=== PATIENT | male | born 1985 | race Caucasian/White ===

== ENCOUNTER → 2017-01-28 | Outpatient (CLI) | payer MEDICAID ==
--- NOTE | 2017-01-28 21:04 | CONS ---
DATE OF CONSULTATION: REASON FOR CONSULTATION: Sleep apnea. 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 He snores loudly. His tells me that he stops breathing and he occasionally wakes up gasping for air. Occasionally grinds his teeth. He goes to bed around 10:00 a.m. Wakes 4 p.m. 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 No symptoms of narcolepsy. No sleep hallucinations or cataplexy. No recent weight gain. However anatomically he has got significant crowding of posterior pharynx with Mallampati class IV. His [place] score is 6. No major comorbidities other than I noted that his blood pressure is high and I asked him to establish himself with a primary care physician for better blood pressure control. PAST MEDICAL HISTORY: Negative. PAST SURGICAL HISTORY: Negative. Allergies not known. Medications are none. SOCIAL HISTORY: Ex-smoker, quit 10 years ago. No history of alcohol. No history of IV drugs. FAMILY HISTORY: Noncontributory. REVIEW OF SYSTEMS: Twelve-point review of systems was done and positive findings all mentioned above in the history of present illness. No nocturnal heartburn. No sleepwalking or sleeptalking. No anxiety or panic attacks. No palpitations. No claustrophobia, no depression. BP is 170/114, pulse 80, respirations 16, temperature 98.2, saturation is 98% on room air. Neck size 16 inches. Height is 5 feet 8 inches. Weight is 199. GENERAL APPEARANCE: Calm, comfortable. HEENT: Short neck, crowding posterior pharynx. There is no goiter or neck masses. Mallampati class IV. LUNGS: Clear to auscultation. HEART: Sounds are regular rate and rhythm. Normal S1, S2. ABDOMEN: Soft, nontender. EXTREMITIES: No clubbing. No cyanosis or clubbing. IMPRESSION: 1. Obstructive sleep apnea suspected clinically under investigation. 2. Mallampati Class IV. 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 4. Hypertension. PLAN: 1. Recommend tighter blood pressure control and the patient needs to establish himself with primary care physician. 2. Weight loss. 3. Implement good sleep hygiene measures. 4. Polysomnogram to look for any significant obstructive sleep apnea and treat accordingly. 5. Will continue to follow and make further recommendations based on his progress.
== END ==
LOC: SLEEP 14:48
PROVIDERS: ATTEND Internal Medicine Critical Care Medicine
DX: G47.33 Obstructive sleep apnea (adult) (pediatric) (principal); I10 Essential (primary) hypertension; Z87.891 Personal history of nicotine dependence
CPT/HCPCS: 99211

== ENCOUNTER → 2022-01-10 | Outpatient (CLI) | payer MEDICAID ==
[2022-01-10 19:57] LABS: Basophils # (A) 0.06 X 10*3/uL (0.00-0.10); Basophils % (A) 0.7 %; Eosinophils # (A) 0.12 X 10*3/uL (0.04-0.35); Eosinophils % (A) 1.5 %; HCT 50.2 % (39.6-50.0); HGB 16.3 g/dL (13.0-17.0); Immature Grans, Automated 0.4 %; Lymphocytes # (A) 2.01 X 10*3/uL (0.90-5.00); Lymphocytes % (A) 24.3 %; MCH 28.7 pg (27.0-32.0); MCHC 32.5 g/dL (32.0-37.0); MCV 88.4 fL (80.0-97.0); Mean Platelet Volume 12.1 fL (9.5-12.2); Monocytes # (A) 0.43 X 10*3/uL (0.20-1.00); Monocytes % (A) 5.2 %; NRBC Per 100 WBC 0 /100 WBCS (0.0-0.0); Neutrophils # (A) 5.62 X 10*3/uL (1.80-7.70); Neutrophils % (A) 67.9 %; Platelet Count 209 X 10*3/uL (140-440); RBC 5.68 X 10*6/uL (4.40-5.60); RDW 12.5 % (11.5-14.5); WBC 8.27 X 10*3/uL (4.50-10.00)
[2022-01-10 20:03] LABS: African American GFR (CKD) 105.1 (60.0-200.0); Albumin 4.6 g/dL (3.8-4.9); Albumin/Globulin Ratio 1.7 (1.60-3.17); BUN/Creat Ratio 12.69 Ratio (12.00-20.00); Blood Urea Nitrogen 13.2 mg/dL (9.0-27.0); Calcium 9.5 mg/dL (8.7-10.3); Carbon Dioxide 22.6 mmol/L (20.0-27.5); Globulin 2.7 g/dL (1.6-3.3); HDL Cholesterol 43.6 mg/dL (40.00-60.00); Non-African American GFR(CKD) 90.7 (60.0-200.0); Potassium 3.9 mmol/L (3.5-5.5); Total Bilirubin 0.4 mg/dL (0.30-1.20); Total Protein 7.3 g/dL (6.2-8.2)
[2022-01-10 20:16] LABS: Chol/HDL Ratio 5.69 Ratio
[2022-01-10 20:56] LABS: Mumps Virus IgG Ab Interp POSITIVE (NEGATIVE); Mumps Virus IgG Antibody 1.9 AI
== END | disposition home or self-care (01) ==
LOC: LABWHC1 13:46
PROVIDERS: ATTEND Internal Medicine Geriatric Medicine
DX: Z00.00 Encounter for general adult medical examination without abnormal findings (principal); Z13.220 Encounter for screening for lipoid disorders
CPT/HCPCS: 36415; 80053; 80061; 83721; 84443; 85025; 86735; 86762; 86765

== ENCOUNTER → 2024-07-13 | Outpatient (CLI) | payer MEDICAID ==
[2024-07-13 14:59] LABS: Basophils # (A) 0.04 X 10*3/uL (0.00-0.10); Basophils % (A) 0.6 %; Eosinophils # (A) 0.14 X 10*3/uL (0.04-0.35); HCT 50.9 % (39.6-50.0); HGB 16.7 g/dL (13.0-17.0); Lymphocytes # (A) 2.48 X 10*3/uL (0.90-5.00); Lymphocytes % (A) 35.3 %; MCH 29.6 pg (27.0-32.0); MCHC 32.8 g/dL (32.0-37.0); MCV 90.1 FL (80.0-97.0); Mean Platelet Volume 12.1 FL (9.5-12.2); Monocytes # (A) 0.63 X 10*3/uL (0.20-1.00); NRBC Per 100 WBC 0 X 10*3/uL (0.00-0.01); Neutrophils # (A) 3.71 X 10*3/uL (1.80-7.70); Neutrophils % (A) 52.8 %; Platelet Count 203 X 10*3/uL (140-440); RBC 5.65 X 10*6/uL (4.40-5.60); RDW 12.4 % (11.5-14.5); WBC 7.02 X 10*3/uL (4.50-10.00)
[2024-07-13 15:31] LABS: ALT 38 U/L (10-49); AST 66 U/L (14-35); Albumin 4.7 g/dL (3.8-4.9); Albumin/Globulin Ratio 1.88 Ratio (1.60-3.17); Alkaline Phosphatase 90 U/L (41-126); BUN/Creat Ratio 12.67 Ratio (12.00-20.00); Blood Urea Nitrogen 11.4 mg/dL (9.0-27.0); Calcium 9.9 mg/dL (8.7-10.3); Carbon Dioxide 23.9 mmol/L (21.6-31.8); Chloride 105 mmol/L (96-109); Chol/HDL Ratio 5.72 Ratio; Globulin 2.5 g/dL (1.6-3.3); Glucose 95 mg/dL (70-110); LDL Cholesterol,Calculated 185.1 mg/dL (0.0-131.0); Potassium 4.5 mmol/L (3.5-5.5); Sodium 140 mmol/L (135-145); Total Bilirubin 0.4 mg/dL (0.3-1.2); Total Protein 7.2 g/dL (6.2-8.2)
== END | disposition home or self-care (01) ==
LOC: LABWHC1 07:44
PROVIDERS: ATTEND Internal Medicine
DX: Z00.00 Encounter for general adult medical examination without abnormal findings (principal); Z11.59 Encounter for screening for other viral diseases
CPT/HCPCS: 36415; 80053; 80061; 84443; 85025; 86803